=== PATIENT | male | born 2000 | race Caucasian/White ===

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

== ENCOUNTER 2020-09-25 16:11 | Emergency (ER) | payer OTHER ==
[~2020-09-25] VITALS: Ht 175.3 cm; Wt 86.3 kg
[~2020-09-25 16:11] MED LIST changes: +DICY10CA3 PO; +ONDA4TAB7 PO
[2020-09-25] MEDS ORDERED: PIPERACILLIN/TAZOBACTAM 3.375 GM in IV NORMAL SALINE 50ML 50 ML IV ONE (17:00)
[2020-09-25] MEDS ORDERED: DEXAMETHASONE SOD PHOS 20 MG/5 ML VIAL. IV ONE (17:00)
[2020-09-25] MEDS ORDERED: IV NORMAL SALINE 500ML BAG 500 ML IV ONE (17:00)
--- NOTE | 2020-09-25 17:02 | ED.ADGEN ---
Past Medical History Past Medical History: Constipation, Unknown Additional Past Medical Histor: hard of hearing since Past Surgical History: Other Additional Past Surgical Histo: LEFT ARM Smoking Status: Never Smoker Alcohol Use: None Drug Use: None General Adult EDM: Chief Complaint: DENTAL PROBLEM HPI: HPI: Patient is a 20 year old male coming in for approximately 2 weeks of worsening right lower dental pain. Patient was seen by dentist and started on amoxicillin and referred to an oral surgeon to have his wisdom teeth removed. Patient states symptoms were improving and he took all of his antibiotics. Was unable to get his insurance to approve his surgery in time, and the surgeon is going to be out of town he will ability to have his procedure done until December. Patient states he finished his antibiotics about 4 days ago and symptoms started getting worse over the past 2 to 3 days. He denies any purulent drainage. Patient also complaining of pain in his neck and throat and difficulty swallowing. Patient states last night he had a difficult time sleeping because he felt like he could not breathe well because of swelling in his throat. Denies any fevers, cough, vomiting, diarrhea, or neck stiffness Review of Systems: Review of Systems: All other systems within normal limits except for as noted in the HPI Current Medications: Current Medications Medications (Trade) Dose Ordered Sig/Jayce Start Time Stop Time Status Last Admin Dose Admin Dexamethasone Sodium Phosphate (Decadron) 10 mg 1X ONCE 09/25/20 17:00 09/25/20 17:01 DC 09/25/20 17:25 10 MG Info (CONTRAST GIVEN -- Rx MONITORING) 1 each PRN DAILY PRN 09/25/20 17:30 09/27/20 17:29 Iohexol (Omnipaque 300 Mg/ml) 70 ml 1X ONCE 09/25/20 17:30 09/25/20 17:31 DC 09/25/20 17:58 70 ML Piperacillin Sod/ Tazobactam Sod 3.375 gm/Sodium Chloride 50 ml @ 100 mls/hr 1X ONCE 09/25/20 17:00 09/25/20 17:29 DC 09/25/20 17:25 100 MLS/HR Sodium Chloride 500 ml @ 500 mls/hr 1X ONCE 09/25/20 17:00 09/25/20 17:59 DC 09/25/20 17:00 500 MLS/HR Allergies: Allergies: Allergies Coded Allergies Type Severity Reaction Last Updated Verified No Known Drug Allergies 02/28/14 No Physical Exam: PE: Constitutional: Well developed, well nourished, no acute distress, non-toxic appearance. [] HENT: Normocephalic, atraumatic, bilateral external ears normal, nose normal. Tenderness to right face no swelling, diffuse dental caries in bilateral lower wisdom teeth, no abscess or purulence [] Eyes: PERRLA, conjunctiva normal, no discharge. [] Neck: No rigidity, supple, no stridor. Tenderness of right neck, no fluctuance or crepitus. No significant cervical lymphadenopathy. [] Cardiovascular: Regular rate and rhythm, brisk cap refill [] Lungs & Thorax: Non labored symmetric respirations, no tachypnea or respiratory distress [] Abdomen: Soft, nondistended. Skin: Warm, dry, no erythema, no rash. [] Back: Unremarkable Extremities: No deformities, range of motion grossly intact, no lower extremity edema [] Neurologic: Alert and oriented X 3, no focal deficits noted. [] Psychologic: Affect normal, judgement normal, mood normal. [] Constitutional: Well developed, well nourished, no acute distress, non-toxic appearance HENT: Normocephalic, atraumatic, severe dental shukri noted to right mandibular 3rd molar, no fluctuance Eyes: Conjunctiva normal, no discharge Neck: Normal range of motion, no erythema or fluctuance, no significant lymphade nopathy, supple Lungs & Thorax: No respiratory distress, equal chest rise and fall Skin: Warm, dry, no erythema, no rash Extremities: No tenderness, ROM intact, no edema Neurologic: Alert and oriented X 3, no focal deficits noted Psychologic: Affect normal, judgment normal Current Patient Data: Labs: Laboratory Tests Test 09/25/20 17:15 White Blood Count 5.5 x10^3/uL (4.0-11.0) Red Blood Count 5.59 x10^6/uL (4.30-5.70) Hemoglobin 16.0 g/dL (13.0-17.5) Hematocrit 46.3 % (39.0-53.0) Mean Corpuscular Volume 83 fL (79-100) Mean Corpuscular Hemoglobin 29 pg (25-35) Mean Corpuscular Hemoglobin Concent 35 g/dL (31-37) Red Cell Distribution Width 14.3 % (11.5-14.5) Platelet Count 223 x10^3/uL (140-400) Neutrophils (%) (Auto) 55 % (31-73) Lymphocytes (%) (Auto) 32 % (24-48) Monocytes (%) (Auto) 10 % (0-9) H Eosinophils (%) (Auto) 2 % (0-3) Basophils (%) (Auto) 1 % (0-3) Neutrophils # (Auto) 3.0 x10^3/uL (1.8-7.7) Lymphocytes # (Auto) 1.8 x10^3/uL (1.0-4.8) Monocytes # (Auto) 0.5 x10^3/uL (0.0-1.1) Eosinophils # (Auto) 0.1 x10^3/uL (0.0-0.7) Basophils # (Auto) 0.0 x10^3/uL (0.0-0.2) Sodium Level 141 mmol/L (136-145) Potassium Level 3.7 mmol/L (3.5-5.1) Chloride Level 104 mmol/L (98-107) Carbon Dioxide Level 28 mmol/L (21-32) Anion Gap 9 (6-14) Blood Urea Nitrogen 11 mg/dL (8-26) Creatinine 1.1 mg/dL (0.7-1.3) Estimated GFR (Cockcroft-Gault) 85.3 BUN/Creatinine Ratio 10 (6-20) Glucose Level 86 mg/dL (70-99) Calcium Level 8.8 mg/dL (8.5-10.1) Total Bilirubin 0.6 mg/dL (0.2-1.0) Aspartate Amino Transferase (AST) 17 U/L (15-37) Alanine Aminotransferase (ALT) 35 U/L (16-63) Alkaline Phosphatase 76 U/L (46-116) Total Protein 7.4 g/dL (6.4-8.2) Albumin 4.2 g/dL (3.4-5.0) Albumin/Globulin Ratio 1.3 (1.0-1.7) Laboratory Tests 09/25/20 17:15 Laboratory Tests 09/25/20 17:15 Vital Signs: Vital Signs Date Time Temp Pulse Resp B/P (MAP) Pulse Ox O2 Delivery O2 Flow Rate FiO2 09/25/20 18:32 82 17 153/59 (90) 98 Room Air 09/25/20 16:20 98.7 98.7 EKG: EKG: [] Radiology/Procedures: Radiology/Procedures: PROCEDURE: CT SOFT TISSUE NECK W/CONTRAST CT neck with contrast 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 Axial coronal and sagittal reconstruction was performed for a CT soft tissues neck with contrast. Findings: The fat soft tissue planes of the neck are preserved. There is no mass or lymphadenopathy. There is no prevertebral soft tissue swelling. The thyroid appears normal. Mild reversal of the normal cervical lordosis is seen. Impression: 1. Mild reversal of the normal cervical lordosis could be positional or could be secondary to muscle spasm. 2. Otherwise negative examination. No mass lymphadenopathy or abscess. PQRS Compliance Statement: One or more of the following individualized dose reduction techniques were utilized for this examination: 1. Automated exposure control 2. Adjustment of the mA and/or kV according to patient size 3. Use of iterative reconstruction technique Electronically signed by: Hadley Allison III, MD (09/25/2020 6:34 PM) [facility] Course & Med Decision Making: Course & Med Decision Making Pending CT at shift change. Care transition to Dr. Ba 1800- Sign out received from Dr. Morales for patient with known dental issues with right sided neck pain and reported shortness of breath due to concern for swelling in neck. Labs reviewed. CT neck pending at time of sign out. CT without acute process. Patient seen and evaluated by myself. Patient previously received steroid. Will continue. Patient stable for discharge with outpatient follow-up with PCP/dentist/oral surgeon. Discussed findings and plan with patient and his mother, who acknowledge understanding and agreement. Norris Disclaimer: Norris Disclaimer: This electronic medical record was generated, in whole or in part, using a voice recognition dictation system. Departure Departure Impression: Primary Impression: Dentalgia Disposition: 01 DC HOME SELF CARE/HOMELESS Condition: STABLE Referrals: RAMÓN ARREDONDO DO (PCP) Patient Instructions: Toothache-Brief Additional Instructions: Use over the counter Tylenol and/or Ibuprofen for pain or discomfort. (purchase with children's liquid version) Scripts Chlorhexidine Gluconate (PERIDEX) 15 Ml Mouthwash 15 ML PO BID, #473 ML 0 Refills Prov: EVANGELIST BA DO 09/25/20 Prednisolone (PREDNISOLONE) 15 Mg/5 Ml Solution 30 MG PO DAILY for 5 Days, #150 MISC Start this prescription tomorrow, Saturday09/26/20 Prov: EVANGELIST BA DO 09/25/20 FAISAL MORALES MD Sep 25, 2020 17:02 EVANGELIST BA DO Sep 25, 2020 18:49
[2020-09-25 17:24] LABS: BASO % 1 % (0-3); EOS # 0.1 x10^3/uL (0.0-0.7); EOS % 2 % (0-3); HEMATOCRIT 46.3 % (39.0-53.0); LYMPH # 1.8 x10^3/uL (1.0-4.8); LYMPH % 32 % (24-48); MEAN CORPUSCULAR HEMOGLOBIN 29 pg (25-35); MEAN CORPUSCULAR HGB CONC 35 g/dL (31-37); MEAN CORPUSCULAR VOLUME 83 fL (79-100); MONO # 0.5 x10^3/uL (0.0-1.1); MONO % 10 % (0-9); NEUT % 55 % (31-73); PLATELET COUNT 223 x10^3/uL (140-400); RED BLOOD COUNT 5.59 x10^6/uL (4.30-5.70); RED CELL DISTRIBUTION WIDTH 14.3 % (11.5-14.5); WHITE BLOOD COUNT 5.5 x10^3/uL (4.0-11.0)
[2020-09-25] MEDS ORDERED: CONTRAST GIVEN. MC PRN (17:30)
[2020-09-25] MEDS ORDERED: IOHEXOL 300 MG/ML 100ML VIAL. IV ONE (17:30)
[2020-09-25 17:38] LABS: CALCIUM 8.8 mg/dL (8.5-10.1); CREATININE 1.1 mg/dL (0.7-1.3); GFR 85.3; POTASSIUM 3.7 mmol/L (3.5-5.1)
[2020-09-25 17:43] LABS: ALBUMIN 4.2 g/dL (3.4-5.0); ALBUMIN/GLOBULIN RATIO 1.3 (1.0-1.7); TOTAL BILIRUBIN 0.6 mg/dL (0.2-1.0); TOTAL PROTEIN 7.4 g/dL (6.4-8.2)
--- NOTE | 2020-09-25 18:37 | RAD ---
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 Axial coronal and sagittal reconstruction was performed for a CT soft tissues neck with contrast. Findings: The fat soft tissue planes of the neck are preserved. There is no mass or lymphadenopathy. There is n o prevertebral soft tissue swelling. The thyroid appears normal. Mild reversal of the normal cervical lordosis is seen. Impression: 1. Mild reversal of the normal cervical lordosis could be positional or could be secondary to muscle spasm. 2. Otherwise negative examination. No mass lymphadenopathy or abscess. PQRS Compliance Statement: One or more of the following individualized dose reduction techniques were utilized for this examinat ion: 1. Automated exposure control 2. Adjustment of the mA and/or kV according to patient size 3. Use of iterative reconstruction technique Electronically signed by: Hadley Allison III, MD (09/25/2020 6:34 PM) [facility]
[2020-09-25] MEDS ORDERED: PRED15SO24 PO (19:24)
[2020-09-25] MEDS ORDERED: CHLO15MO2 PO (19:24)
[2020-09-25 19:32] VITALS: BP 137/71
== END 2020-09-25 19:35 | disposition home or self-care (01) ==
LOC: ER 16:11
DX: K08.89 Other specified disorders of teeth and supporting structures (principal); R13.10 Dysphagia, unspecified; R60.0 Localized edema; Z98.890 Other specified postprocedural states
CPT/HCPCS: 36415; 70491; 80053; 85025; 96365; 96375; 99285; J1100; J2543; J7040; Q9967

== ENCOUNTER 2020-09-27 06:49 | Emergency (ER) | payer OTHER ==
[~2020-09-27] VITALS: Ht 175.3 cm; Wt 86.0 kg
[~2020-09-27 06:49] MED LIST changes: +CHLO15MO2 PO; +PRED15SO24 PO
[2020-09-27 06:55] VITALS: BP 157/87
[2020-09-27] MEDS ORDERED: PENICILLIN V K 250 MG TABLET. PO ONE (07:15)
[2020-09-27] MEDS ORDERED: diphenhydrAMINE HCL 25 MG CAPSULE PO ONE (07:15)
[2020-09-27] MEDS ORDERED: IBUPROFEN 400 MG TABLET. PO ONE (07:15)
[2020-09-27] MEDS ORDERED: predniSONE 10 MG TABLET PO ONE (07:15)
--- NOTE | 2020-09-27 07:35 | RAD ---
XR NECK SOFT TISSUE History: Reason: neck pain, throat feels tight x2days / Spl. Instructions: / History: Technique: 2 views neck soft tissues Comparison: None. Findings: Unremarkable prevertebral soft tissues. Normal appearance of the epiglottis. No radiopaque foreign timur dy. Straightening of the cervical spine. Disc spaces are well-maintained. Impression: 1. No radiographic evidence of acute pathology within the neck soft tissues. Electronically signed by: Joshua Tejada DO (09/27/2020 7:33 AM) [id number]
--- NOTE | 2020-09-27 07:54 | PHYS DOC ---
Past Medical History Past Medical History: Constipation, Unknown Additional Past Medical Histor: hard of hearing since Past Surgical History: Other Additional Past Surgical Histo: LEFT ARM Smoking Status: Never Smoker Alcohol Use: None Drug Use: None Adult General Chief Complaint Chief Complaint: DENTAL PROBLEM HPI HPI Patient is a 20 year old male with a known past medical history of deafness now presents emergency department with new onset of right-sided neck and oral pain and swelling. Patient states that he has been having difficulty with pain in the right lower mouth over the last few months. Over the last 48 hours noted worsening pain and swelling primarily in the right lower neck and thoracic back. Patient and his mother note that they were trying to the dentist for what appears to be infected tooth for many months but is having difficulty obtaining an appointment. Presented today when the swelling is worse and feels like he is not having swelling to the right portion of the neck. Denies any fever, chills, nausea, vomiting, dizziness or lightheadedness Review of Systems Review of Systems Constitutional: Denies fever or chills [] Eyes: Denies change in visual acuity, redness, or eye pain [] HENT: Denies nasal congestion or sore throat [] Respiratory: Denies cough or shortness of breath [] Cardiovascular: No additional information not addressed in HPI [] GI: Denies abdominal pain, nausea, vomiting, bloody stools or diarrhea [] : Denies dysuria or hematuria [] Musculoskeletal: Denies back pain or joint pain [] Integument: Denies rash or skin lesions [] Neurologic: Denies headache, focal weakness or sensory changes [] Endocrine: Denies polyuria or polydipsia [] All other systems were reviewed and found to be within normal limits, except as documented in this note. Current Medications Current Medications Current Medications Medications (Trade) Dose Ordered Sig/Jayce Start Time Stop Time Status Last Admin Dose Admin Diphenhydramine HCl (Benadryl) 25 mg 1X ONCE 09/27/20 07:15 09/27/20 07:16 DC 09/27/20 07:35 25 MG Ibuprofen (Motrin) 800 mg 1X ONCE 09/27/20 07:15 09/27/20 07:16 DC 09/27/20 07:35 800 MG Penicillin V Potassium (Veetid) 250 mg 1X ONCE 09/27/20 07:15 2/23/21 07:16 DC 09/27/20 07:35 250 MG Prednisone (Prednisone) 50 mg 1X ONCE 09/27/20 07:15 09/27/20 07:16 DC 09/27/20 07:35 50 MG Allergies Allergies Allergies Coded Allergies Type Severity Reaction Last Updated Verified No Known Drug Allergies 02/28/14 No Physical Exam Physical Exam Constitutional: Well developed, well nourished, no acute distress, non-toxic appearance. [] HENT: Normocephalic, atraumatic, bilateral external ears normal, oropharynx moist, no oral exudates, nose normal. Significant mucosal edema around right posterior inferior molar. Moderate swelling and tenderness to the right periodontal region [] Eyes: PERRLA, EOMI, conjunctiva normal, no discharge. [] Neck: Normal range of motion, no tenderness, supple, no stridor. [] Cardiovascular:Heart rate regular rhythm, no murmur [] Lungs & Thorax: Bilateral breath sounds clear to auscultation [] Abdomen: Bowel sounds normal, soft, no tenderness, no masses, no pulsatile masses. [] Skin: Warm, dry, no erythema, no rash. [] Back: No tenderness, no CVA tenderness. [] Extremities: No tenderness, no cyanosis, no clubbing, ROM intact, no edema. [] Neurologic: Alert and oriented X 3, normal motor function, normal sensory function, no focal deficits noted. [] Psychologic: Affect normal, judgement normal, mood normal. [] Current Patient Data Vital Signs Vital Signs Date Time Temp Pulse Resp B/P (MAP) Pulse Ox O2 Delivery O2 Flow Rate FiO2 09/27/20 06:55 98.0 90 16 157/87 (110) 96 Room Air 98.0 EKG EKG [] Radiology/Procedures Radiology/Procedures [] Course & Med Decision Making Course & Med Decision Making Pertinent Labs and Imaging studies reviewed. (See chart for details) 20M presenting the emergency department with new onset of right-sided. Not on dental pain with significant swelling and there is considerable concern for an infection in the area. This time we will try to treat the patient symptomatically and watch. Nosebleeds angina is a consideration here over the swelling and infection appears to be contained the right peritonsillar region. No indication for intubation at this time. Patient currently dramatically improved symptoms. Has been resting comfortably. No significant swelling on reexamination. At this time will discharge Dragon Disclaimer Dragon Disclaimer This electronic medical record was generated, in whole or in part, using a voice recognition dictation system. Departure Departure Impression: Primary Impression: Dental infection Additional Impression: Infected dental caries Disposition: 01 DC HOME SELF CARE/HOMELESS Condition: GOOD Referrals: RAMÓN ARREDONDO DO (PCP) Patient Instructions: Dental Caries Additional Instructions: EMERGENCY DEPARTMENT GENERAL DISCHARGE INSTRUCTIONS Thank you for coming to [facility] Emergency Department (ED) today and trusting us with you care. We trust that you had a positive experience in our Emergency Department. If you wish to speak to the department management, you may call the Director at [phone]. YOUR FOLLOW UP INSTRUCTIONS ARE FOLLOWS: 1. Do you have a private Doctor? If you do not have a private doctor, please ask for a resource list of physicians or clinics that may be able to assist you with follow up care. 2. The Emergency Physicain has interpreted your x-rays. The X-Ray specialist will also review them. If there is a change in the findings, you will be notified in 48 hours when at all possible. 3. A lab test or culture has been done, your results will be reviewed and you will be notified if you need a change in treatment. ADDITIONAL INSTRUCTIONS AND INFORMATION: 1. Your care today has been supervised by a physician who is specially trained in emergency care. Many problems require more than one evaluation for a complete diagnosis and treatment. We recommend that you schedule your follow up appointment as recommended to ensure complete treatment of you illness or injury. If you are unable to obtain follow up care and continue to have a problem, or if your condition worsens, we recommend that you return to the ED. 2. We are not able to safely determine your condition over the phone nor are we able to give sound medical advice over the phone. For these safety reasons, if you call for medical advice we will ask you to come to the ED for further evaluation. 3. If you have any questions regarding these discharge instructions please call the ED at [phone]. SAFETY INFORMATION: In the interest of safety, wellness, and injury prevention; we encourage you to wear your sealbelt, if you smoke; quite smoking, and we encourage family to use a protective helmet for bicycling and other sporting events that present an increased risk for head injury. IF YOUR SYMPTOMS WORSEN OR NEW SYMPTOMS DEVELOP, OR YOU HAVE CONCERNS ABOUT YOUR CONDITION; OR IF YOUR CONDITION WORSENS WHILE YOU ARE WAITING FOR YOUR FOLLOW UP APPOINTMENT; EITHER CONTACT YOUR PRIMARY CARE DOCTOR, THE PHYSICIAN WHOSE NAME AND NUMBER YOU WERE GIVEN, OR RETURN TO THE ED IMMEDIATELY. Scripts Prednisone (PREDNISONE) 20 Mg Tablet 1 TAB PO DAILY, #5 TAB Prov: RADHA LIZAMA MD 09/27/20 Penicillin V Potassium (PENICILLIN V POTASSIUM) 500 Mg Tablet 1 TAB PO Q12HR for 10 Days, #20 TAB Prov: RADHA LIZAMA MD 09/27/20 Problem Qualifiers RADHA LIZAMA MD Sep 27, 2020 07:54
[2020-09-27] MEDS ORDERED: PENI500T PO (09:53)
[2020-09-27] MEDS ORDERED: PRED20TA PO (09:53)
== END 2020-09-27 10:00 | disposition home or self-care (01) ==
LOC: ER 06:49
DX: K04.7 Periapical abscess without sinus (principal); K02.9 Dental caries, unspecified; R60.0 Localized edema; Z98.890 Other specified postprocedural states
CPT/HCPCS: 70360; 99284; J7512; Q0163

== ENCOUNTER 2021-06-14 17:13 | Emergency (ER) | payer OTHER ==
[~2021-06-14] VITALS: Ht 172.7 cm; Wt 77.2 kg
[~2021-06-14 17:13] MED LIST changes: +CYCL10TA19 PO; -CYCL10TA2 PO; +PENI500T PO
[2021-06-14 17:30] VITALS: BP 122/65
[2021-06-14 17:53] LABS: BILIRUBIN,URINE NEGATIVE (NEG); CLARITY,URINE CLEAR; COLOR,URINE YELLOW; NITRITE,URINE NEGATIVE (NEG); PH,URINE 6.5 (<5.0-8.0); PROTEIN,URINE NEGATIVE (NEG-TRACE)
--- NOTE | 2021-06-14 18:02 | PHYS DOC ---
Past Medical History Past Medical History: Constipation, Unknown Additional Past Medical Histor: hard of hearing since Past Surgical History: Other Additional Past Surgical Histo: LEFT ARM Smoking Status: Never Smoker Alcohol Use: None Drug Use: None General Adult EDM: Chief Complaint: FLANK PAIN HPI: HPI: Patient is a 21-year-old male who presents to the emergency department for a "cyst" to his right side. His mother is interpreting for him as he uses sign language. Mother states that he has had this cyst for several years but he decided to be seen today because it was bothering him. Patient denies any fevers, nausea, vomiting. He reports that he has a little bit of pain with urination. Review of Systems: Review of Systems: Constitutional: Denies fever or chills. [] Eyes: Denies change in visual acuity. [] HENT: Denies nasal congestion or sore throat. [] Respiratory: Denies cough or shortness of breath. [] Cardiovascular: Denies chest pain or edema. [] GI: Denies abdominal pain, nausea, vomiting, bloody stools or diarrhea. [] : Denies dysuria. [] Musculoskeletal: Denies back pain or joint pain. [] Integument: Denies rash. [] Neurologic: Denies headache, focal weakness or sensory changes. [] Endocrine: Denies polyuria or polydipsia. [] Lymphatic: Denies swollen glands. [] Psychiatric: Denies depression or anxiety. [] Heart Score: C/O Chest Pain: N/A Risk Factors: Risk Factors: DM, Current or recent (<one month) smoker, HTN, HLP, family history of CAD, obesity. Risk Scores: Score 0 - 3: 2.5% MACE over next 6 weeks - Discharge Home Score 4 - 6: 20.3% MACE over next 6 weeks - Admit for Clinical Observation Score 7 - 10: 72.7% MACE over next 6 weeks - Early Invasive Strategies Allergies: Allergies: Allergies Coded Allergies Type Severity Reaction Last Updated Verified No Known Drug Allergies 02/28/14 No Physical Exam: PE: Constitutional: Well developed, well nourished, no acute distress, non-toxic appearance. [] HENT: Normocephalic, atraumatic, bilateral external ears normal, oropharynx moist, no oral exudates, nose normal. [] Eyes: PERRL, EOMI, conjunctiva normal, no discharge. [] Neck: Normal range of motion, no tenderness, supple, no stridor. [] Cardiovascular:Heart rate regular rhythm, no murmur [] Lungs & Thorax: Bilateral breath sounds clear to auscultation [] Abdomen: Bowel sounds normal, soft, no tenderness, no masses, no pulsatile masses. [] Skin: Warm, dry, no erythema, no rash, 1 cm in diameter mobile circular nodule noted to right side this is likely a lipoma Back: Normal range of motion Extremities: No tenderness, no cyanosis, no clubbing, ROM intact, no edema. [] Neurologic: Alert and oriented X 3, normal motor function, normal sensory function, no focal deficits noted. [] Psychologic: Affect normal, judgement normal, mood normal. [] EKG: EKG: [] Radiology/Procedures: Radiology/Procedures: [] Course & Med Decision Making: Course & Med Decision Making Pertinent Labs and Imaging studies reviewed. (See chart for details) [] Patient presents to the emergency department for a cyst that has been on his right side for several years. He is also reporting mild dysuria. A urinalysis was performed that showed contamination as there was amorphous sediment, few bacteria, no leukocytes.. Upon physical exam patient is noted to have a small 1 cm in diameter mobile circular nodule noted to his right side, when I told patient and his mother that this is likely a lipoma, she states "yes that is what we are told that was".. Patient advised to follow-up with his primary care provider. Patient advised to take Tylenol and/or ibuprofen for pain and fo llow-up with his primary care provider. I discussed with patient all findings and diagnostic testing as well as the need to follow-up with PCP for further evaluation and treatment or return to the ER if any new or worsening symptoms. Strict return precautions were also discussed at length. Patient voiced understanding and agreement with the plan. Patient is hemodynamically stable at the time of disposition. Dragon Disclaimer: Norris Disclaimer: This electronic medical record was generated, in whole or in part, using a voice recognition dictation system. Departure Departure Impression: Primary Impression: Cyst Disposition: 01 HOME / SELF CARE / HOMELESS Condition: GOOD Referrals: RAMÓN ARREDONDO DO (PCP) Patient Instructions: Lipoma Additional Instructions: You were seen in the emergency department for a "cyst" noted to your right side. You also reported that you had a little bit of pain with urination. Due to this urinalysis was performed that showed no acute findings. The past noted to your right side is likely a lipoma,, please follow-up with your primary care provider regarding this. You can take Tylenol and/or ibuprofen for your pain. Return to the emergency department if you develop fevers, intractable nausea or vomiting, abdominal pain, severe back pain, blood in your stools or vomit or any new or worsening concerns. EMERGENCY DEPARTMENT GENERAL DISCHARGE INSTRUCTIONS Thank you for coming to [facility] Emergency Department (ED) today and trusting us with you care. We trust that you had a positive experience in our Emergency Department. If you wish to speak to the department management, you may call the Director at [phone]. YOUR FOLLOW UP INSTRUCTIONS ARE FOLLOWS: 1. Do you have a private Doctor? If you do not have a private doctor, please ask for a resource list of physicians or clinics that may be able to assist you with follow up care. 2. The Emergency Physicain has interpreted your x-rays. The X-Ray specialist will also review them. If there is a change in the findings, you will be notified in 48 hours when at all possible. 3. A lab test or culture has been done, your results will be reviewed and you will be notified if you need a change in treatment. ADDITIONAL INSTRUCTIONS AND INFORMATION: 1. Your care today has been supervised by a physician who is specially trained in emergency care. Many problems require more than one evaluation for a complete diagnosis and treatment. We recommend that you schedule your follow up appointment as recommended to ensure complete treatment of you illness or injury. If you are unable to obtain follow up care and continue to have a problem, or if your condition worsens, we recommend that you return to the ED. 2. We are not able to safely determine your condition over the phone nor are we able to give sound medical advice over the phone. For these safety reasons, if you call for medical advice we will ask you to come to the ED for further evaluation. 3. If you have any questions regarding these discharge instructions please call the ED at [phone]. SAFETY INFORMATION: In the interest of safety, wellness, and injury prevention; we encourage you to wear your sealbelt, if you smoke; quite smoking, and we encourage family to use a protective helmet for bicycling and other sporting events that present an increased risk for head injury. IF YOUR SYMPTOMS WORSEN OR NEW SYMPTOMS DEVELOP, OR YOU HAVE CONCERNS ABOUT YOUR CONDITION; OR IF YOUR CONDITION WORSENS WHILE YOU ARE WAITING FOR YOUR FOLLOW UP APPOINTMENT; EITHER CONTACT YOUR PRIMARY CARE DOCTOR, THE PHYSICIAN WHOSE NAME AND NUMBER YOU WERE GIVEN, OR RETURN TO THE ED IMMEDIATELY. MINA OCONNELL APRN Jun 14, 2021 18:02
[2021-06-14 18:04] LABS: AMORPHOUS SEDIMENT,UR PRESENT /HPF; BACTERIA,URINE FEW /HPF (0-FEW)
[2021-06-14 18:05] LABS: RBC,URINE 0 /HPF (0-2)
== END 2021-06-14 18:26 | disposition home or self-care (01) ==
LOC: ER 17:13
DX: L72.8 Other follicular cysts of the skin and subcutaneous tissue (principal); R30.0 Dysuria
CPT/HCPCS: 81001; 99283